=== PATIENT | male | born 1970 | race Caucasian/White ===

== ENCOUNTER 2017-03-14 10:58 | Emergency (ER) | payer OTHER ==
[~2017-03-14] VITALS: Ht 172.7 cm; Wt 87.0 kg
[2017-03-14 11:02] VITALS: Ht 172.7 cm; Wt 87.0 kg
--- NOTE | 2017-03-14 12:11 | ERD ---
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 He was running and complains of localized pain at the right lateral aspect of the knee and the quadricep region. Pain is achy, local, worse when he walks on it better at rest. He reports that he thinks he might of had a dislocation of his "kneecap" which he tried to fix himself. ROS All systems reviewed and are negative except as per history of present illness. Medications Home Meds Active Scripts Ibuprofen* (Motrin*) 600 Mg Tab, 600 MG PO Q6, #30 TAB Prov:ANTELMO JASSO PA-C 03/14/17 Allergies Allergies: Coded Allergies: No Known Allergy (Unverified , 03/16/16) PMhx/Soc History of Surgery: Yes (appendectomy) Anesthesia Reaction: No Hx Neurological Disorder: No Hx Respiratory Disorders: No Hx Cardiac Disorders: No Hx Psychiatric Problems: No Hx Miscellaneous Medical Probl: Yes (gout) Hx Alcohol Use: No Hx Substance Use: No Hx Tobacco Use: Yes (9cig/day) Smoking Status: Current every day smoker Physical Exam Vitals Vital Signs Date Time Temp Pulse Resp B/P Pulse Ox O2 Delivery O2 Flow Rate FiO2 03/14/17 11:02 98.3 84 18 161/101 98 Physical Exam General: Well-developed, well-nourished. The patient appears in no acute distress. HEENT: Head is normocephalic, atraumatic. No scleral icterus. Neck: Supple. Nontender. Lungs: Clear to auscultation. Normal air movement. Heart: Regular rate and rhythm. S1 and S2 are normal. No murmurs, gallops, or rubs. Abdomen: Nondistended. Musculoskeletal: The patient right has full range of motion with right knee flexion and extension, there is no warmth or erythema, no drainage, no joint laxity with valgus and varus stress. There is tenderness over the insertion point of the quadriceps tendon at the lateral aspect over the patella. He is able to straight leg raise. Neurologic: Alert and oriented 3. No focal deficits. Normal speech and gait. Skin: Normal turgor. No rash or lesions. Procedures/MDM 46-year-old male comes in with a knee sprain, suspicion for dislocation, fracture is low. X-rays were obtained that are unremarkable. He has his own niece brace that holds the patella in place, and has wrapping above and below the knee underneath. I believe this patient's brace is sufficient at this time as there is no evidence of a dislocation. Patient's symptoms are most likely from a knee sprain, and will be advised to follow-up with his primary care doctor. Use of brace for 4-6 weeks, if no improvement he may require an MRI. Departure Diagnosis: Primary Impression: Knee injury Condition: ANTELMO Boggs PA-C Mar 14, 2017 12:11
--- NOTE | 2017-03-14 12:31 | RADRPT ---
PROCEDURE: XR Knee. CLINICAL INDICATION: Right lateral knee pain after running TECHNIQUE: 3 images of the right knee are available for review. COMPARISON: None available FINDINGS: There is no acute fracture. Alignment is normal. Joint spaces are preserved. There is a small joint effusion. IMPRESSION: 1. No radiographic evidence of acute osseous abnormality. 2. Small knee joint effusion. RPTAT: [facility] .Simon Borrego MD, MD Date Time Electronically viewed and signed by .Simon Borrego MD, on 03/14/2017 12:31 .K/
[2017-03-14] MEDS ORDERED: IBUP-1542 PO (12:40)
== END 2017-03-14 13:04 | disposition home or self-care (01) ==
LOC: FTE 10:58
DX: S89.91XA Unspecified injury of right lower leg, initial encounter (principal); F17.210 Nicotine dependence, cigarettes, uncomplicated; X58.XXXA Exposure to other specified factors, initial encounter; Y92.9 Unspecified place or not applicable
CPT/HCPCS: 73562; Z7502

== ENCOUNTER 2018-02-04 15:34 | Emergency (ER) | END 2018-02-04 16:31 | disposition home or self-care (01) ==

== ENCOUNTER 2018-05-06 23:48 | Emergency (ER) | payer OTHER ==
[~2018-05-06] VITALS: Wt 82.0 kg
[~2018-05-06 23:48] MED LIST: CYCL10TA7 PO; IBUP-1542 PO; NAPR-985 PO
--- NOTE | 2018-05-07 02:44 | ERD ---
ER Documentation Chief Complaint Chief Complaint sliced left thumb with safety deposit boxes custodian tonight. HPI 47-year-old male present ED for laceration of his left thumb. Patient states that he was trying to open up a gift package for his son when he accidentally sliced his left thumb with a safety deposit boxes custodian. Patient states that it was bleeding a lot. Patient is right-hand dominant. Denies any other injuries. Denies past medical history. Patient states that he last tetanus update was 6 months ago. He thinks that he gets tetanus update every year. ROS All systems reviewed and are negative except as per history of present illness. Medications Home Meds Active Scripts Ibuprofen* (Motrin*) 600 Mg Tab, 600 MG PO Q6H PRN for PAIN AND OR ELEVATED TEMP, #30 TAB Prov:STACY CARBALLO SALES DATA ANALYST 05/07/18 Cyclobenzaprine Hcl* (Cyclobenzaprine Hcl*) 10 Mg Tablet, 10 MG PO QHS, #7 TAB Prov:NISHA SOTO PA-C 02/04/18 Naproxen* (Naprosyn*) 500 Mg Tablet, 500 MG PO BID PRN for PAIN AND/OR INFLAMMATION, #30 TAB Prov:NISHA SOTO PA-C 02/04/18 Ibuprofen* (Motrin*) 600 Mg Tab, 600 MG PO Q6, #30 TAB Prov:ANTELMO JASSO PA-C 03/14/17 Allergies Allergies: Coded Allergies: No Known Allergy (Unverified , 05/06/18) PMhx/Soc History of Surgery: Yes (appendectomy) Anesthesia Reaction: No Hx Neurological Disorder: No Hx Respiratory Disorders: No Hx Cardiac Disorders: No Hx Psychiatric Problems: No Hx Miscellaneous Medical Probl: Yes (gout) Hx Alcohol Use: No Hx Substance Use: No Hx Tobacco Use: Yes (9cig/day) Smoking Status: Current every day smoker Physical Exam Vitals Vital Signs Date Temp Pulse Resp B/P (MAP) Pulse Ox O2 O2 Flow FiO2 Time Delivery Rate 05/07/18 98.3 77 16 138/89 100 Room Air 04:12 (105) 05/06/18 96.4 88 20 143/83 100 23:51 (103) Physical Exam General: Well-developed, well-nourished, conscious and coherent, in no distress Skin: Warm and dry without rash, good texture and turgor. Head: Normocephalic without evidence of trauma Chest: Normal AP diameter. Good expansion without retractions. Nontender. Lungs are clear to auscultate bilaterally with good tidal volume Heart: Regular rate and rhythm. No murmur, rub, or gallops heard Extremities: A rectangular flap with 3 open size measuring 2 cm, 1 cm, and 1 cm long, respectively. Full range of motion. Good strength bilaterally. No erythema, ecchymosis, or edema. Peripheral pulses are intact. Sensation intact Neuro: Alert and oriented 4, GCS 15. Results 24 hrs Current Medications Medications Dose Sig/Leanne Start Time Status Last (Trade) Ordered Route PRN Stop Time Admin Dose Reason Admin Lidocaine 20 ml ONCE ONCE 05/07/18 DC (Xylocaine SC 03:00 05/07/18 1% (Mdv) 20 03:01 ml) Ibuprofen 600 mg ONCE ONCE 05/07/18 DC 05/07/18 (Motrin) PO 04:30 05/07/18 04:12 04:31 Diphtheria/ 0.5 ml ONCE ONCE 05/07/18 DC 05/07/18 Tetanus/Acell IM* 04:30 05/07/18 04:08 Pertussis 04:31 (Adacel) Procedures/MDM Procedure note: laceration repair Verbal consent was obtained for the laceration repair. Bleeding was controlled using a finger tourniquet. The wound was copiously irrigated. Local anesthesia was provided using 1% lidocaine. After appropriate anesthesia, the area was explored under a bloodless field. Full range of motion of the joint above and below the injury was noted. No foreign body was noted. Therapist are to be a small avulsion of distal portion of the extensor tendon of the left thumb. However, patient is able to flex and extend the affected thumb freely. Closure was achieved with 2 corner stitches, and 11 interrupted sutures using 4- 0 Ethilon. Good cosmetic and hemostatic results were obtained with the closure. The wound was then cleaned and a dressing was applied. The left thumb was then placed in a metal finger splint. TDap given to the patient in the ED. Patient advised to follow-up in the ED in 2 days for wound check. Departure Diagnosis: Primary Impression: Laceration Condition: Stable STACY CARBALLO NP May 07, 2018 02:44
[2018-05-07] MEDS ORDERED: LIDOCAINE 1% (MDV) 20 ML INJ SC ONE (03:00)
[2018-05-07] MEDS ORDERED: IBUP-1542 PO (04:04)
[2018-05-07 04:12] VITALS: BP 138/89; PULSE 77; RESP 16
[2018-05-07] MEDS ORDERED: DIPHTH/TET/ACEL PERTUSS (ADULT) 0.5 ML VIAL IM* ONE (04:30)
[2018-05-07] MEDS ORDERED: IBUPROFEN 600 MG TAB PO ONE (04:30)
== END 2018-05-07 04:20 | disposition home or self-care (01) ==
LOC: FTE 23:48
DX: S61.102A Unspecified open wound of left thumb with damage to nail, initial encounter (principal); F17.210 Nicotine dependence, cigarettes, uncomplicated; R40.2412 Glasgow coma scale score 13-15, at arrival to emergency department; W26.8XXA Contact with other sharp object(s), not elsewhere classified, initial encounter; Y92.9 Unspecified place or not applicable; Z23 Encounter for immunization
CPT/HCPCS: 12002; 90471; 90715; Z7502; Z7610